=== PATIENT | female | born 1980 | race Asian ===

== ENCOUNTER → 2016-02-21 | Outpatient (CLI) | payer BC ==
[2016-02-21 17:42] LABS: HEMATOCRIT 36.9 % (37-47); MEAN CELL VOLUME 78.8 fL (80-100); MEAN CORPUSCULAR HEMOGLOBIN 25.9 pg (25-34); MEAN CORPUSCULAR HGB CONC 32.8 g/dl (32-36); MEAN PLATELET VOLUME 9.8 fL (7.4-10.4); PLATELET COUNT 200 K/uL (130-400); RED BLOOD COUNT 4.68 M/uL (4.2-5.4); WHITE BLOOD COUNT 7.77 K/uL (4.8-10.8)
[2016-02-21 18:11] LABS: TOTAL IRON BINDING CAPACITY 364 mcg/dl (250-450)
== END | disposition home or self-care (01) ==
LOC: C.LAB1850 16:39
PROVIDERS: ATTEND Obstetrics & Gynecology
DX: D50.9 Iron deficiency anemia, unspecified (principal)

== ENCOUNTER → 2017-09-25 | Outpatient (CLI) | payer OTHER ==
[2017-09-25 12:17] LABS: HEMATOCRIT 39.5 % (37-47); HEMOGLOBIN 12.8 g/dL (12.0-16.0); MEAN CELL VOLUME 87.2 fL (80-100); MEAN CORPUSCULAR HEMOGLOBIN 28.3 pg (25-34); MEAN CORPUSCULAR HGB CONC 32.4 g/dl (32-36); MEAN PLATELET VOLUME 10.8 fL (7.4-10.4); PLATELET COUNT 200 K/uL (130-400); RED CELL DISTRIBUTION WIDTH CV 12.9 % (11.5-14.5); RED CELL DISTRIBUTION WIDTH SD 41.3 fL (36.4-46.3); WHITE BLOOD COUNT 5.47 K/uL (4.8-10.8)
== END | disposition home or self-care (01) ==
LOC: C.LAB1850 10:38
PROVIDERS: ATTEND Obstetrics & Gynecology
DX: D50.9 Iron deficiency anemia, unspecified (principal)